=== PATIENT | female | born 1975 | race Hispanic/Latino ===

== ENCOUNTER → 2017-08-03 | Outpatient (CLI) | payer BC ==
--- NOTE | 2017-08-03 09:44 | Diagnostic Imaging Report ---
PROCEDURE: Transabdominal and transvaginal ultrasound imaging of the pelvis was performed. TECHNIQUE: COMPARISON: None. INDICATIONS: Anemia FINDINGS: KIDNEYS: Unremarkable. UTERUS: The uterus measures 9.1 x 5.0 x 5.4 cm. The endometrial echocomplex measures 6.0 mm. Nabothian cyst is present. OVARIES/ADNEXA: Right ovary 3.3 x 1.7 x 2.4 cm. Left ovary 2.9 x 1.3 x 2.4 cm. No solid mass. Multiple right ovarian cysts are present, largest measuring 1.6 x 1.0 x 1.5 cm. PELVIS: No free fluid. IMPRESSION: No acute sonographic abnormality. Right ovarian cysts. Dictated by: Saúl Bass M.D. on 08/03/2017 at 9:44 Electronically approved by: Saúl Bass M.D. on 08/03/2017 at 9:45
== END ==
LOC: US 07:40
PROVIDERS: ATTEND Family Medicine
DX: D64.9 Anemia, unspecified (principal)
CPT/HCPCS: 76830

== ENCOUNTER → 2021-05-10 | Day surgery (SDC) | payer BC ==
[2021-05-06 08:37] LABS: BASOPHILS % 0.6 % (0.0-1.0); EOSINOPHILS # (AUTO) 0.1 (0.0-0.4); EOSINOPHILS % 1.4 % (0.0-6.0); HEMATOCRIT 43.2 % (34.2-44.1); HEMOGLOBIN 13.8 g/dL (12.0-16.0); LYMPHOCYTES % 30.9 % (18.0-39.1); MEAN CORPUSCULAR HGB CONC 31.9 g/dL (31-35); MEAN CORPUSCULAR VOLUME 87.6 fL (81-99); MONOCYTES # (AUTO) 0.4 (0.2-0.8); MONOCYTES % 6.8 % (4.4-11.3); NEUTROPHILS # (AUTO) 3.8 (2.1-6.9); PLATELET COUNT 227 x10e3/uL (140-360); RED BLOOD COUNT 4.93 x10e6/uL (3.6-5.1); RED CELL DISTRIBUTION WIDTH 13.4 % (11.7-14.4)
[2021-05-06 09:12] LABS: ALBUMIN/GLOBULIN RATIO 1.1 (0.8-2.0); ANION GAP 12.1 mmol/L (8-16); CREATININE, SERUM 0.67 mg/dL (0.57-1.11); POTASSIUM 4.1 mmol/L (3.5-5.1)
[2021-05-06 09:34] LABS: CALCIUM 8.9 mg/dL (8.4-10.2)
[~2021-05-10] MED LIST: ALKA-SELTZER P1 EA15; DEXAMETHASONE SOD PHOS INJ 4 MG/ML SDV ONE; ESTROGENS CONJUGATED VAGINAL CR 45 GM TUBE PV ONE; FENTANYL CITRATE/PF 100MCG/2 ML INJ ONE; FERROUS SULFAT325 MG PO; KETOROLAC TROMETHAMINE 30 MG/ML VIAL ONE; LIDOCAINE 1% W/EPINEPHRINE 20 ML VIAL ONE; LIDOCAINE HCL 2% LOCAL INJ 5 ML SDV VIAL INJ ONE; METOCLOPRAMIDE HCL 10 MG/2ML VIAL ONE; MIDAZOLAM HCL 2 MG/2 ML VIAL ONE; ONDANSETRON HCL INJ 2MG/ML 2ML 2 MG/ML VIAL ONE; POVIDONE IODINE 0.05% 0.05 % ML PO ONE; PROPOFOL IV EMULSION 10 MG/ML 20 ML VIAL ONE; SEVOFLURANE INHAL SOLN 250 ML PEN BTL ONE; SODIUM CHLORIDE 0.9% 50ML 100 ML ONE
[2021-05-10 10:40] VITALS: BP 155/90
== END | disposition home or self-care (01) ==
LOC: OR 07:09
PROVIDERS: ATTEND Obstetrics & Gynecology
DX: N81.10 Cystocele, unspecified (principal); N84.0 Polyp of corpus uteri; Z88.6 Allergy status to analgesic agent; N39.3 Stress incontinence (female) (male); Z01.812 Encounter for preprocedural laboratory examination; Z20.822 Contact with and (suspected) exposure to COVID-19
CPT/HCPCS: 36415; 57240; 57288; 58558; 80053; 81025; 84702; 85025; 88305; J0690; J1100; J1885; J2001; J2250; J2405; J2704; J2765; J3010; U0002